=== PATIENT | female | born 1940 | race Two or more races ===

== ENCOUNTER 2017-11-10 09:10 | Outpatient (CLI) | payer OTHER | END 2017-11-10 09:12 | disposition home or self-care (01) | LOC: LAB 09:10 | DX: R79.89 Other specified abnormal findings of blood chemistry (principal); Z51.81 Encounter for therapeutic drug level monitoring ==

== ENCOUNTER 2017-11-10 11:04 | Outpatient (CLI) | payer OTHER | END 2017-11-10 13:22 | disposition home or self-care (01) | LOC: MRI 11:04 | DX: E11.9 Type 2 diabetes mellitus without complications (principal); I10 Essential (primary) hypertension; E03.8 Other specified hypothyroidism; Z68.32 Body mass index [BMI] 32.0-32.9, adult; I67.89 Other cerebrovascular disease | CPT/HCPCS: 70553; Q9965 ==

== ENCOUNTER 2018-09-16 20:48 | Emergency (ER) | payer OTHER ==
[~2018-09-16] VITALS: Ht 144.8 cm; Wt 75.7 kg
[2018-09-16] MEDS ORDERED: GLUMETZA500 MG PO (21:08)
[2018-09-16] MEDS ORDERED: PRINIVIL20 MG (21:09)
[2018-09-16] MEDS ORDERED: LEVOXYL50 MCG (21:09)
[2018-09-16] MEDS ORDERED: SIMVASTATIN20 MG (21:09)
== END 2018-09-16 22:19 | disposition home or self-care (01) ==
LOC: ER 20:48
DX: S01.02XA Laceration with foreign body of scalp, initial encounter (principal); W45.8XXA Other foreign body or object entering through skin, initial encounter; Y93.89 Activity, other specified; Y92.018 Other place in single-family (private) house as the place of occurrence of the external cause; Y99.8 Other external cause status

== ENCOUNTER 2018-09-26 11:39 | Emergency (ER) | payer OTHER ==
[~2018-09-26] VITALS: Ht 144.8 cm; Wt 72.6 kg
[~2018-09-26 11:39] MED LIST: GLUMETZA500 MG PO; LEVOXYL50 MCG; PRINIVIL20 MG; SIMVASTATIN20 MG
== END 2018-09-26 15:40 | disposition home or self-care (01) ==
LOC: ER 11:39
DX: Z48.02 Encounter for removal of sutures (principal); M54.2 Cervicalgia; M54.5 Low back pain

== ENCOUNTER 2018-10-26 18:47 | Inpatient (IN) | payer OTHER ==
[~2018-10-26] VITALS: Ht 147.3 cm; Wt 75.7 kg
[~2018-10-26 18:47] MED LIST changes: +AMOX1TAB5 PO; +INTESTINEX680 M1 PO
[2018-10-26] MEDS ORDERED: LEVOTH (19:06)
[2018-10-26] MEDS ORDERED: CYMBALTA30 MG (19:06)
[2018-10-26] MEDS ORDERED: PREDNISONE5 M1 (19:07)
[2018-10-26] MEDS ORDERED: ACIDOPHILUS1 EAC3 (19:08)
[2018-11-08] MEDS ORDERED: INTESTINEX680 M1 PO (09:57)
[2018-11-08] MEDS ORDERED: LEVOTHYROXINE25 MCG PO ×2 (09:59→10:00)
[2018-11-12] MEDS ORDERED: AMLODIPINE BESYL5 MG PO (08:17)
[2018-11-12] MEDS ORDERED: BUTALB-ACETAMI1 EAC2 PO (08:17)
[2018-11-12] MEDS ORDERED: LEVOTHYROXINE25 MCG PO (08:18)
[2018-11-12] MEDS ORDERED: CYMBALTA30 MG PO (08:18)
[2018-11-12] MEDS ORDERED: LEVOTHYROXINE50 MCG PO (08:19)
[2018-11-12] MEDS ORDERED: GLUMETZA500 MG PO (08:19)
[2018-11-12] MEDS ORDERED: PREDNISONE5 M1 PO (08:20)
[2018-11-12] MEDS ORDERED: INTESTINEX680 M1 PO (08:20)
[2018-11-12] MEDS ORDERED: PANTOPRAZOLE SO40 MG PO (08:21)
[2018-11-12] MEDS ORDERED: CIPRO500 MG PO (08:22)
[2018-11-12] MEDS ORDERED: FLAGYL500MG PO (08:23)
== END 2018-11-12 11:00 | disposition home or self-care (01) | DRG 377 ==
LOC: ER 18:47 → SURH 22:56
PROVIDERS: ADMIT Surgery
PROC: 0W9G30Z Drainage of Peritoneal Cavity with Drainage Device, Percutaneous Approach (ICD-10-PCS; principal; 2018-10-26)
PROC: BW21ZZZ Computerized Tomography (CT Scan) of Abdomen and Pelvis (ICD-10-PCS; 2018-10-26)
PROC: 02HV33Z Insertion of Infusion Device into Superior Vena Cava, Percutaneous Approach (ICD-10-PCS; 2018-10-27)
PROC: 3E0336Z Introduction of Nutritional Substance into Peripheral Vein, Percutaneous Approach (ICD-10-PCS; 2018-10-27)
PROC: BW21Y0Z Computerized Tomography (CT Scan) of Abdomen and Pelvis using Other Contrast, Unenhanced and Enhanced (ICD-10-PCS; 2018-11-02)
DX: K57.21 Diverticulitis of large intestine with perforation and abscess with bleeding (principal); A41.9 Sepsis, unspecified organism; K65.1 Peritoneal abscess; Z99.11 Dependence on respirator [ventilator] status; D62 Acute posthemorrhagic anemia; B37.89 Other sites of candidiasis; E03.8 Other specified hypothyroidism; K62.5 Hemorrhage of anus and rectum; G47.33 Obstructive sleep apnea (adult) (pediatric); M35.3 Polymyalgia rheumatica; E11.65 Type 2 diabetes mellitus with hyperglycemia; D50.8 Other iron deficiency anemias; B96.5 Pseudomonas (aeruginosa) (mallei) (pseudomallei) as the cause of diseases classified elsewhere; B96.29 Other Escherichia coli [E. coli] as the cause of diseases classified elsewhere; E86.0 Dehydration; Z79.4 Long term (current) use of insulin; Z79.52 Long term (current) use of systemic steroids; Z99.89 Dependence on other enabling machines and devices

== ENCOUNTER 2022-10-24 13:55 | Emergency (ER) | payer OTHER ==
[~2022-10-24] VITALS: Ht 144.8 cm; Wt 70.8 kg
[~2022-10-24 13:55] MED LIST changes: +ACIDOPHILUS1 EAC3; +AMLODIPINE BESYL5 MG PO; +BUTALB-ACETAMI1 EAC2 PO; +CIPRO500 MG PO; +CYMBALTA30 MG; +CYMBALTA30 MG PO; +FLAGYL500MG PO; +LEVOTH; +LEVOTHYROXINE25 MCG PO; +LEVOTHYROXINE50 MCG PO; +PANTOPRAZOLE SO40 MG PO; +PREDNISONE5 M1; +PREDNISONE5 M1 PO
== END 2022-10-24 19:05 | disposition home or self-care (01) ==
LOC: ER 13:55
DX: S09.8XXA Other specified injuries of head, initial encounter (principal); W18.39XA Other fall on same level, initial encounter; Y93.89 Activity, other specified; Y92.89 Other specified places as the place of occurrence of the external cause; E11.9 Type 2 diabetes mellitus without complications; Z79.84 Long term (current) use of oral hypoglycemic drugs; E03.9 Hypothyroidism, unspecified; S14.0XXA Concussion and edema of cervical spinal cord, initial encounter

== ENCOUNTER 2022-10-27 16:22 | Emergency (ER) | payer OTHER ==
[~2022-10-27] VITALS: Ht 149.9 cm; Wt 63.5 kg
[2022-10-27] MEDS ORDERED: SIMVASTATIN5 MG (17:34)
== END 2022-10-27 21:21 | disposition home or self-care (01) ==
LOC: ER 16:22
DX: R51.9 Headache, unspecified (principal); R42 Dizziness and giddiness

== ENCOUNTER 2024-05-04 13:00 | Emergency (ER) | payer OTHER ==
[~2024-05-04] VITALS: Ht 142.2 cm; Wt 71.2 kg
[~2024-05-04 13:00] MED LIST changes: +SIMVASTATIN5 MG
[2024-05-04] MEDS ORDERED: DEXAMETHASONE SODIUM PHOSPHATE 4 MG/ML VIAL IM STA (17:41)
[2024-05-04] MEDS ORDERED: ORPHENADRINE CITRATE 30 MG/ML AMPUL IM STA (17:42)
== END 2024-05-04 20:35 | disposition home or self-care (01) ==
LOC: ER 13:02
DX: S09.8XXA Other specified injuries of head, initial encounter (principal); W19.XXXA Unspecified fall, initial encounter; Y93.89 Activity, other specified; Y92.89 Other specified places as the place of occurrence of the external cause; Y99.8 Other external cause status

== ENCOUNTER 2024-10-03 10:49 | Emergency (ER) | payer OTHER ==
[~2024-10-03] VITALS: Ht 142.2 cm; Wt 71.2 kg
[2024-10-03] MEDS ORDERED: GLIPIZIDE XL5 MG PO (11:43)
[2024-10-03] MEDS ORDERED: TRULICITY1.5 MG/0.5 SQ (11:44)
[2024-10-03] MEDS ORDERED: CEFTRIAXONE SODIUM 1,000 MG VIAL IM ONE (12:00)
[2024-10-03 12:11] LABS: PH,URINE 5.5 (5.0-8.0); URINE APPEARANCE Cloudy; URINE BILIRRUBIN Negative (NEGATIVE); URINE BLOOD Trace; URINE COLOR Yellow; URINE GLUCOSE Negative (NEGATIVE); URINE KETONE Negative (NEGATIVE); URINE LEUKOCYTE Large; URINE NITRATE Positive; URINE PROTEIN Negative (NEGATIVE); URINE UROBILINOGEN 0.2 E.U./dl
[2024-10-03 12:15] LABS: URINE EPITHELIAL CELLS 8.2 uL (0.0-38.8); URINE RBC 3.5 uL (0.0-20.8); URINE WBC 1489.7 uL (0.0-23.2)
[2024-10-03 12:20] LABS: HEMATOCRIT 34.4 % (36.0-45.00); HEMOGLOBIN 11.8 g/dL (12.0-15.00); MEAN CELL VOLUME 90.8 fL (80.00-100.00); MEAN CORPUSCULAR HEMOGLOBIN 31.2 pg (27.00-32.0); MEAN CORPUSCULAR HGB CONC 34.4 g/dl (32.0-36.0); PLATELET COUNT 279 K/uL (150-450); RED BLOOD COUNT 3.79 M/uL (4.00-6.00); RED CELL DISTRIBUTION WIDTH 14.6 % (11.5-14.5)
[2024-10-03 12:58] LABS: URINE BACTERIA > 9821.5 uL (0.0-1933); URINE CAST 0.44 uL (0.0-1.40)
[2024-10-03] MEDS ORDERED: CEPHALEXIN500 M1 PO (13:18)
== END 2024-10-03 13:21 | disposition home or self-care (01) ==
LOC: ER 10:52
PROVIDERS: General Practice
DX: N39.0 Urinary tract infection, site not specified (principal); I10 Essential (primary) hypertension
CPT/HCPCS: 36415; 96372; 99282; J0696

== ENCOUNTER → 2024-10-07 | Emergency (ER) | payer OTHER ==
[~2024-10-07] VITALS: Ht 152.4 cm; Wt 68.0 kg
[~2024-10-07] MED LIST changes: +CEPHALEXIN500 M1 PO; +GLIPIZIDE XL5 MG PO; +TRULICITY1.5 MG/0.5 SQ
[2024-10-07 12:09] LABS: HEMATOCRIT 33.9 % (36.0-45.00); HEMOGLOBIN 11.3 g/dL (12.0-15.00); MEAN CELL VOLUME 92.2 fL (80.00-100.00); MEAN CORPUSCULAR HEMOGLOBIN 30.6 pg (27.00-32.0); MEAN CORPUSCULAR HGB CONC 33.2 g/dl (32.0-36.0); PLATELET COUNT 263 K/uL (150-450); RED BLOOD COUNT 3.68 M/uL (4.00-6.00); RED CELL DISTRIBUTION WIDTH 14.3 % (11.5-14.5)
[2024-10-07 12:21] LABS: CALCIUM 8.9 mg/dL (8.5-10.1); GFR 52.95; POTASSIUM 3.84 mEq/L (3.5-5.1)
[2024-10-07 12:35] LABS: URINE APPEARANCE Clear; URINE BILIRRUBIN Negative (NEGATIVE); URINE BLOOD Negative; URINE COLOR Yellow; URINE GLUCOSE Negative (NEGATIVE); URINE KETONE Negative (NEGATIVE); URINE LEUKOCYTE Moderate; URINE NITRATE Negative; URINE PROTEIN Negative (NEGATIVE); URINE UROBILINOGEN 0.2 E.U./dl
[2024-10-07 12:39] LABS: URINE BACTERIA 45.2 uL (0.0-1933); URINE WBC 66.2 uL (0.0-23.2)
[2024-10-07 12:55] LABS: URINE RBC 1.7 uL (0.0-20.8)
== END | disposition home or self-care (01) ==
LOC: ER 10:22
PROVIDERS: Emergency Medicine
DX: N39.0 Urinary tract infection, site not specified (principal); R10.9 Unspecified abdominal pain; I10 Essential (primary) hypertension; E11.9 Type 2 diabetes mellitus without complications; Z79.84 Long term (current) use of oral hypoglycemic drugs

== ENCOUNTER 2024-10-11 10:44 | Outpatient (CLI) | payer OTHER | END 2024-10-11 10:52 | disposition home or self-care (01) | LOC: SONOGRAMA 10:44 | DX: R10.2 Pelvic and perineal pain (principal) ==